=== PATIENT | female | born 1975 | race Two or more races ===

== ENCOUNTER 2020-02-11 09:40 | Outpatient (CLI) | payer OTHER ==
[~2020-02-11] VITALS: Ht 157.5 cm; Wt 62.1 kg
[2020-02-11] MEDS ORDERED: NORETHINDRONE (11:09)
[2020-02-11] MEDS ORDERED: ETHINYL ESTRADIOL (11:09)
== END 2020-02-11 17:42 | disposition home or self-care (01) ==
LOC: OFIC 805 09:40
PROVIDERS: ATTEND Otolaryngology Otology & Neurotology
DX: J31.0 Chronic rhinitis (principal); R09.81 Nasal congestion; G47.33 Obstructive sleep apnea (adult) (pediatric); R09.82 Postnasal drip